=== PATIENT | female | born 1980 | race Two or more races ===

== ENCOUNTER 2020-10-16 06:05 | Inpatient (IN) | payer MEDICAID ==
[2020-10-13 10:18] LABS: APPEARANCE,URINE CLOUDY; BILIRUBIN, URINE NEGATIVE (NEGATIVE); GLUCOSE, URINE (UA) NEGATIVE (NEGATIVE); KETONES,URINE NEGATIVE (NEGATIVE); LEUKOCYTE ESTERASE ,URINE 2+ (NEGATIVE); NITRITE,URINE POSITIVE (NEGATIVE); PH,URINE 7 (4.5-8.0); PROTEIN,URINE 1+ (NEGATIVE); UROBILINOGEN,URINE NORMAL MG/DL (0.0-1.0)
[2020-10-13 10:22] LABS: COLOR,URINE YELLOW
[2020-10-13 10:24] LABS: BASOPHILS % (AUTO) 0.4 % (0.0-2.0); EOSINOPHILS % (AUTO) 0.3 % (0.0-3.0); HEMATOCRIT 48.2 % (37.0-47.0); HEMOGLOBIN 15.8 G/DL (12.0-16.0); MEAN CORPUSCULAR VOLUME 92 FL (80-99); MONOCYTES % (AUTO) 6.7 % (1.0-10.0); NEUTROPHILS % (AUTO) 74.7 % (45.0-75.0); PLATELET COUNT 298 K/UL (150-450); RED BLOOD COUNT 5.25 M/UL (4.20-5.40); RED CELL DISTRIBUTION WIDTH 12.8 % (11.6-14.8); WHITE BLOOD COUNT 5.4 K/UL (4.8-10.8)
[2020-10-13 10:25] LABS: ANION GAP 8 mmol/L (5-15); BLOOD UREA NITROGEN 10 mg/dL (7-18); CALCIUM 9.7 MG/DL (8.5-10.1); CARBON DIOXIDE 28 MMOL/L (21-32); CHLORIDE 103 MMOL/L (98-107); CREATININE 0.8 MG/DL (0.55-1.30); POTASSIUM 3.9 MMOL/L (3.5-5.1); SODIUM 139 MMOL/L (136-145)
[2020-10-16] VITALS (15 sets, daily range): BP systolic 112–145; BP diastolic 74–89
[~2020-10-16] VITALS: Ht 165.1 cm; Wt 96.6 kg
--- NOTE | 2020-10-16 05:10 | Cardiology Report ---
APPROVED REPORT EKG Measurement Heart [id number] <Conclusion> Normal sinus rhythm Normal ECG
[~2020-10-16 06:05] MED LIST: MULTIVITAMINS1 EAC2 ORAL; VITAMIN C500 M1 ORAL; vitamin D PO
[2020-10-16 06:54] LABS: APPEARANCE,URINE SLIGHTLY CLOUDY; BILIRUBIN, URINE NEGATIVE (NEGATIVE); GLUCOSE, URINE (UA) NEGATIVE (NEGATIVE); KETONES,URINE NEGATIVE (NEGATIVE); LEUKOCYTE ESTERASE ,URINE 1+ (NEGATIVE); NITRITE,URINE NEGATIVE (NEGATIVE); PH,URINE 9 (4.5-8.0); PROTEIN,URINE 2+ (NEGATIVE); UROBILINOGEN,URINE NORMAL MG/DL (0.0-1.0)
[2020-10-16 07:00] LABS: COLOR,URINE YELLOW
[2020-10-16] MEDS ORDERED: Bacitracin 50000 Units Vial ONE (07:15)
[2020-10-16] MEDS ORDERED: NeoSporin Gu Irrig 1ml Amp IRRIG ONE (07:15)
[2020-10-16] MEDS ORDERED: NS Irrig 1000ml IRRIG ONE ×2 (07:18→08:20)
[2020-10-16] MEDS ORDERED: Rocuronium Bromide 50mg/5ml Inj IV ONE (07:30)
[2020-10-16] MEDS ORDERED: Succinylcholine 20mg/ml 10ml vial ONE (07:30)
[2020-10-16] MEDS ORDERED: Midazolam 2mg/2ml Inj ONE (07:36)
[2020-10-16] MEDS ORDERED: fentaNYL 100 mcg/2 mL IV ONE (07:36)
[2020-10-16] MEDS ORDERED: Lidocaine 1% MPF 10mg/ml 5ml ONE (07:39)
--- NOTE | 2020-10-16 07:53 | Pre-Procedure Note/Attestation ---
Pre-Procedure Note/Attestation Complete Prior to Procedure Planned Procedure: left Procedure Narrative: left breast partial mastectomy and left axillary lymph node biopsy Indications for Procedure Pre-Operative Diagnosis: invasive ductal carcinoma left breast Attestation I attest that I discussed the nature of the procedure; its benefits; risks and complications; and alternatives (and the risks and benefits of such alternatives), prior to the procedure, with the patient (or the patient's legal roofing sales representative). I attest that, if there was a reasonable possibility of needing a blood transfusion, the patient (or the patient's legal roofing sales representative) was given the [facility] standardized written summary, pursuant to the Silas Saeid Blood Safety Act ([place] Health and Safety Code # 1645, as amended). I attest that I re-evaluated the patient just prior to the surgery and that there has been no change in the patient's H&P, except as documented below: none Tone Hair MD Oct 16, 2020 07:53
--- NOTE | 2020-10-16 07:57 | Anethesia Preoperative Eval ---
Anesthesia Pre-op PMH/ROS General Date of Evaluation: Oct 16, 2020 Time of Evaluation: 07:54 Anesthesiologist: Remy ASA Score: ASA 2 Mallampati Score Class I : Soft palate, uvula, fauces, pillars visible Class II: Soft palate, uvula, fauces visible Class III: Soft palate, base of uvula visible Class IV: Only hard plate visible Mallampati Classification: Class II Surgeon: Laxmi Diagnosis: L breast CA Surgical Procedure: Mastectomy Anesthesia History: none Family History: no anesthesia problems Allergies: Coded Allergies: No Known Allergies (Unverified , 10/16/20) Medications: see eMAR Patient NPO?: Yes Past Medical History Cardiovascular: Denies: HTN, CAD, MT, valve dz, arrhythmia, other Pulmonary: Denies: asthma, COPD, MARS, other Gastrointestinal/Genitourinary: Reports: GERD; Denies: CRI, ESRD, other Neurologic/Psychiatric: Reports: depression/anxiety; Denies: dementia, CVA, TIA, other Endocrine: Denies: DM, hypothyroidism, steroids, other HEENT: Denies: cataract (L), cataract (R), glaucoma, [place] (L), [place] (R), other Hematology/Immune: Denies: anemia, DVT, bleeding disorder, other Musculoskeletal/Integumentary: Denies: OA, RA, DJD, DDD, edema, other Other: obesity PMH Narrative: as above PSxH Narrative: See H&P Anesthesia Pre-op Phys. Exam Physician Exam Last Vital Signs Date Time Temp Pulse Resp B/P (MAP) Pulse Ox O2 Delivery O2 Flow Rate FiO2 10/16/20 06:48 Room Air 10/16/20 06:47 97.5 71 18 131/89 98 Constitutional: NAD Neurologic: CN 2-12 intact Cardiovascular: RRR, no M/R/G Respiratory: CTA Gastrointestinal: other - obesity Airway Exam Mallampati Score: Class II MO: full Neck: short ROM: limited Teeth: intact Dentures: no upper, no lower Anesthesia Pre-op A/P Labs see chart Urine Test Test 10/16/20 06:15 Urine HCG, Qualitative Negative (NEGATIVE) Studies Pre-op Studies: EKG - NSR Risk Assessment & Plan Assessment: ASA 2 Plan: GA with ETt Status Change Before Surgery: No Pre-Antibiotics Drug: Ancef 2gr. Given Within 1 Hr of Incision: Yes Time Given: 08:15 Malick Alberto MD Oct 16, 2020 07:57
[2020-10-16] MEDS ORDERED: Sterile Water Irrig 1000ml IRRIG ONE (08:00)
[2020-10-16] MEDS ORDERED: LR 1000ml ONE (08:00)
[2020-10-16] MEDS ORDERED: Neostigmine 1mg/ml 10ml Inj ONE (08:00)
[2020-10-16] MEDS ORDERED: Acetaminophen (Non formulary) 100 ML IV ONE (08:00)
[2020-10-16] MEDS ORDERED: NS Irrig 1000ml ONE (08:00)
[2020-10-16] MEDS ORDERED: Glycopyrrolate 0.2mg/ml 1ml Vial ONE (08:40)
[2020-10-16] MEDS ORDERED: Sodium Chloride 10ml vial INJ ONE (08:40)
[2020-10-16] MEDS ORDERED: Morphine Sulfate 10mg/ml Inj ONE (08:40)
[2020-10-16] MEDS ORDERED: Ketorolac 30mg Inj IV PRN (08:45)
[2020-10-16] MEDS ORDERED: Metoclopramide 10mg/2ml Inj IVP PRN ×2 (08:45→10:00)
[2020-10-16] MEDS ORDERED: DiphenhydrAMINE 50mg/ml Inj IVP PRN (08:45)
[2020-10-16] MEDS ORDERED: Midazolam 2mg/2ml Inj IVP PRN (08:45)
[2020-10-16] MEDS ORDERED: Meperidine 25mg/1ml Inj (FOR RIGORS ONLY) IV PRN (08:45)
[2020-10-16] MEDS ORDERED: LR 1000ml 1,000 ML IVLG SCH (08:45)
[2020-10-16] MEDS ORDERED: HYDROcodone/Acetamin 5/325 tab ORAL PRN (10:00)
--- NOTE | 2020-10-16 10:01 | Brief Operative Note ---
Immediate Post Operative Note Operative Note Pre-op Diagnosis: invasive ductal carcinoma left breast Procedure: left breast partial mastectomy and left axillary lymph node biopsy Post-op Diagnosis: same Post-op Diagnosis: same as pre-op Findings: consistent w/pre-op dx studies Surgeon: sue Anesthesiologist: erica Anesthesia: general Specimen: yes - left breast tissue, left axillary lymph nodes Complications: none Fluids: see anesthesia record Estimated Blood Loss: minimal Drains: KINGS Implant(s) used?: No Tone Hair MD Oct 16, 2020 10:01
--- NOTE | 2020-10-16 10:03 | Immediate Post-Op Evaluation ---
Immediate Post-Op Evalulation Immediate Post-Op Evalulation Procedure: L breast partial mastectomy with axillary l/n dissection Date of Evaluation: Oct 16, 2020 Time of Evaluation: 10:02 IV Fluids: 800 Blood Products: none Estimated Blood Loss: <50 Urinary Output: none Blood Pressure Systolic: 134 Blood Pressure Diastolic: 76 Pulse Rate: 82 Respiratory Rate: 20 O2 Sat by Pulse Oximetry: 99 Temperature (Fahrenheit): 97.6 Pain Score (1-10): 1 Nausea: No Vomiting: No Complications none Patient Status: reacts, patent, extubated, none Hydration Status: adequate Malick Alberto MD Oct 16, 2020 10:03
--- NOTE | 2020-10-16 11:00 | NUR ---
NURSE NOTES: Patient received from PACU via bed to 406, on RA, in stable condition. Patient AOx4, calm. Oriented patient to room, medical equipment and call light. Left breast surgical site pain 7/10, will medicate as ordered. IV infusing to right hand, site asymptomatic. Surgical site, CDI, surgical bra on. KINGS in place, with sanguineous output noted in tubing. Left arm warm, wiggles, pulse palpable, no NT. Bilateral SCDs on. Encouraged ankle rotation. Will provide clear liquids, while waiting for regular diet lunch. Belongings received, reviewed with patient. Patient currently on menstrual cycle, will provide isreal-pads. Bed in lowest position, call light in reach, will continue to monitor.
[2020-10-16] MEDS: HYDROmorphone 1mg/ml Carpuject SUBQ PRN ×2 (11:56→18:10)
--- NOTE | 2020-10-16 12:12 | 48 Hour Post Anesthesia Eval ---
Post Anesthesia Evaluation Procedure: L breast partial mastectomy with axillary l/n dissection Date of Evaluation: Oct 16, 2020 Time of Evaluation: 12:11 Blood Pressure Systolic: 112 0: 64 Pulse Rate: 78 Respiratory Rate: 18 Temperature (Fahrenheit): 97.8 O2 Sat by Pulse Oximetry: 99 Airway: patent Nausea: No Vomiting: No Pain Intensity: 2 Hydration Status: adequate Cardiopulmonary Status: stable Mental Status/LOC: patient returned to baseline Follow-up Care/Observations: n/a Post-Anesthesia Complications: none Follow-up care needed: N/A Malick Alberto MD Oct 16, 2020 12:12
[2020-10-16] MEDS: D5 1/2NS w/KCl 20mEq 1,000 ML IV SCH ×2 (12:27→23:39)
[2020-10-16] MEDS: ceFAZolin sod 1 GM in D5W 55 ML IV SCH ×2 (16:30→23:36)
--- NOTE | 2020-10-16 16:52 | NUR ---
NURSE NOTES: Provided IS, demonstrated proper use and indication, patient returned demonstration, inspires 500 ml, will need further reinforcement.
--- NOTE | 2020-10-16 18:00 | NUR ---
NURSE NOTES: Instructed and demonstrated patient on KINGS care, proper handwashing technique, infection control, glove use, opening/emptying/compressing/closing KINGS, reading and recording measurement, verbalized understanding, will endorse to next to continue educating patient.
--- NOTE | 2020-10-16 19:05 | NUR ---
NURSE HAND-OFF: Important Events on Shift:Post op at 1100, KINGS (L)x1, Emesis x1, Medicated with Dilaudid 1 mg SQx2, Zofran x1 Patient Status: stable Diet: Regular Pending Orders: none Pending Results/Labs:none Pending MD notification:none Latest Vital Signs: Temperature 97.8 , Pulse 78 , B/P 112 /64 , Respiratory Rate 18 , O2 SAT 99 , Room Air, O2 Flow Rate 6 . Vital Sign Comment: none Latest Mtz Fall Score: 60 Fall Risk: High Risk Safety Measures: Call light Within Reach, Bed Alarm , Side Rails Side Rails x2, Bed position Low and Locked. Fall Precautions: Yellow Socks Yellow Gown Door Sign Patient Fall Education Report given to Mamie MCNALLY.
--- NOTE | 2020-10-16 20:00 | NUR ---
NURSE NOTES: RECEIVED PATIENT LYING IN BED, AWAKE, ALERT/ORIENTED X4, TALKATIVE/PLEASANT, S/P LEFT BREAST PARTIAL MASTECTOMY AND LEFT AXILLARY LYMPH NOTED BIOPSY, LEFT BREAST PAIN 2/10, DULL, DRESSING DRY AND INTACT, SURGICAL BRA NOTED. IS SPIROMETER AT BEDSIDE, INSPIRES 2500ML. IV INTACT TO RIGHT HAND/GAUGE 20, NO REDNESS/SWELLING NOTED TO SITE. ENCOURAGED FOOT / ANKLE RANGE OF MOTION, TOLERATING WELL. DENIES GI DISCOMFORT, NO N/V/D, BATHROOM PRIVILEGES WITH ASSIST SECONDARY TO FALL PRECAUTIONS. SIDE RAILS UP X2 FOR MOBILITY, BED IN LOWEST POSITION FOR SAFETY, ENCOURAGED PATIENT TO UTILIZE CALL LIGHT FOR ASSISTANCE, VERBALIZED UNDERSTANDING. CONTINUE WITH CURRENT PLAN OF CARE. NAD.
[2020-10-16] MEDS ORDERED: Tubing IV Secondary IV ONE (21:22)
[2020-10-17] VITALS (7 sets, daily range): BP systolic 127–142; BP diastolic 84–96
--- NOTE | 2020-10-17 07:35 | NUR ---
NURSE NOTES: Report received from Mamie MCNALLY, rounds made. Patient AOx4, calm. Respirations even/unlabored on RA. Left breast/axillary surgical dressing CDI, KINGS with serosanguineous output noted in bulb (will continue to educate on KINGS care). Left arm warm,moves arm/fingers,pulses palpable. Surgical site pain 03/27, will medicate with Dilaudid as ordered. IVF infusing to right hand, site asymptomatic,patient complains of burning, flushed, still has discomfort, clamped off, encouraged to continue to push PO fluid intake. Appetite good,no NV. Bilateral SCDs on. Call light in reach, bed in lowest position, will continue to monitor. Addendum: 10/17/20 at 0802 by Zenaida Ramírez RN Encouraged PO pain medication, patient states, "Next time I will take [place] for pain"
--- NOTE | 2020-10-17 07:36 | NUR ---
NURSE HAND-OFF: Important Events on Shift:[KINGS DRAIN TOTAL OUTPUT 25ML, SANGUINOUS, CONTINUE TO EDUCATE PATIENT ON KINGS DRAIN CARE, INCENTIVE SPIROMETER 2500ML - FOOT AND ANKLE ROM, TOLERATING WELL, AMBULATING TO BATHROOM, VOIDING WELL, NO BOWEL MOVEMENT] Patient Status: [STABLE] Diet: [REGULAR, NO MEAT OR POULTRY,PESCATERIAN, EATS SEAFOOD] Pending Orders: [N/A] Pending Results/Labs:[N/A] Pending MD notification:[] Latest Vital Signs: Temperature 97.5 , Pulse 60 , B/P 138 /84 , Respiratory Rate 17 , O2 SAT 98 , Room Air, O2 Flow Rate 6 . Vital Sign Comment: [STABLE, AFEBRILE] Latest Mtz Fall Score: 60 Fall Risk: High Risk Safety Measures: Call light Within Reach, Bed Alarm Zone 1, Side Rails Side Rails x2, Bed position Low and Locked. Fall Precautions: Yellow Socks Door Sign Patient Fall Education Report given to [DALI BLACKWOOD].
[2020-10-17] MEDS: HYDROmorphone 1mg/ml Carpuject SUBQ PRN (08:01)
--- NOTE | 2020-10-17 08:28 | General Progress Note ---
Progress Note Progress Note No H&P in EMR chart. Pre-op orders indicate H&P dictated Tone Hair MD Oct 17, 2020 08:28
--- NOTE | 2020-10-17 08:44 | General Progress Note ---
Progress Note Progress Note AVSS Had emesis last evening and required Dilaudid SQ several doses. Feeling better this AM left breast and axilla incisions clean and dry with intact steristrips. Mild soft tissue swelling. Nipple well perfused KINGS overnight 25cc Imp: Improved after emesis Pain control Plan: Encouraged to use [place] Teach patient care of KINGS drain Continue in-patient care Tone Hair MD Oct 17, 2020 08:44
--- NOTE | 2020-10-17 13:50 | NUR ---
NURSE NOTES: Provided hands on KINGS care teaching. Patient demonstrated proper KINGS care, with RN verbal instructions and stand by assistance. Discharge supplies (4x4 gauze, paper tape, specimen cup for measuring KINGS output, gloves) provided and reviewed with patient.
--- NOTE | 2020-10-17 15:56 | NUR ---
NURSE NOTES: Patient up ambulating in room, CAMERON, kelby at bedside. Reinforced that she can move her left arm and use her left hand, but no overhead reaching, verbalized understanding.
--- NOTE | 2020-10-17 16:55 | NUR ---
NURSE NOTES: Patient family delivered patient's purse and bag with other belongings, at 1500, RN attempted to record new items on inventory record, patient refused and said she will have her purse/belongings picked up. Patient's mother, Katie, arrived at this time to pecan picker her purse and other belongings, RN handed items to patient's mother as instructed by patient, confirmed patient's mom name.
--- NOTE | 2020-10-17 19:09 | NUR ---
NURSE HAND-OFF: Important Events on Shift:KINGS care teaching done x2, Discharge supply bag ready in room, Medicated with Dilaudid 1mg SQx1, ambulated in room/BRP, Plans for discharge 10/18 AM, KINGS output 40 ml for day shift Patient Status: stable Diet: regular Pending Orders: Discharge 10/18 AM Pending Results/Labs:none Pending MD notification:none Latest Vital Signs: Temperature 97.2 , Pulse 79 , B/P 142 /95 , Respiratory Rate 20 , O2 SAT 96 , Room Air, O2 Flow Rate 6 . Vital Sign Comment: monitor BP Latest Mtz Fall Score: 60 Fall Risk: High Risk Safety Measures: Call light Within Reach, Bed Alarm Zone 1, Side Rails Side Rails x2, Bed position Low and Locked. Fall Precautions: Yellow Socks Door Sign Patient Fall Education Report given to Lynsey MCNALLY.
--- NOTE | 2020-10-17 19:15 | NUR ---
NURSE NOTES: Patient in bed, sleeping at this time. Respirations even and unlabored on room air. Surgical dressing noted on the L breast/axillary; clean, dry and intact. KINGS drain in tact. IV intact and patent. Bed locked and in lowest position. Call light in reach. Will continue plan of care.
[2020-10-18 04:00] VITALS: BP 143/87
--- NOTE | 2020-10-18 06:48 | NUR ---
NURSE HAND-OFF: Important Events on Shift: No reports of pain this shift; KINGS drain output 10cc Patient Status: Stable Diet: Reg Pending Orders: N/A Pending Results/Labs: No AM labs Pending MD notification: N/A Latest Vital Signs: Temperature 97.5 , Pulse 71 , B/P 143 /87 , Respiratory Rate 16 , O2 SAT 98 , Room Air, O2 Flow Rate 6 . Vital Sign Comment: N/A Latest Mtz Fall Score: 60 Fall Risk: High Risk Safety Measures: Call light Within Reach, Bed Alarm Zone 1, Side Rails Side Rails x2, Bed position Low and Locked. Fall Precautions: Yellow Socks Door Sign Patient Fall Education
--- NOTE | 2020-10-18 07:25 | NUR ---
NURSE NOTES: RECEIVED PATIENT LYING IN BED, AWAKE, ALERT/ORIENTED X4, PLEASANT PERSONALITY, SURGICAL DRESSING DRY AND INTACT, SURGICAL BRA WORN NOTED. IS UTILIZES DIRECTED W/A 10X AT BEDSIDE. PIV INTACT TO RIGHT HAND/GAUGE 20, NO REDNESS/SWELLING NOTED TO SITE. [place] REFLEX PRESENT. DENIES GI DISCOMFORT, NO N/V/D, BRP WITH FALL PRECAUTIONS. SIDERAILS UP X2 FOR MOBILITY, BED IN LOWEST POSITION FOR SAFETY, ENCOURAGED PATIENT TO UTILIZE CALL LIGHT FOR ASSISTANCE, VERBALIZED UNDERSTANDING. CONTINUE WITH CURRENT PLAN OF CARE.
[2020-10-18 07:56] VITALS: BP 140/93
--- NOTE | 2020-10-18 09:46 | General Progress Note ---
Progress Note Progress Note AVSS Pain better controlled now with [place] left breast and axilla healing nicely. Surgical brassiere to be maintained 10/04 Imp: improved Plan: discharge Instructions/limitations/supplies discussed/provided Rx [place] #30 f/u 10/22/20 Tone Hair MD Oct 18, 2020 09:46
[2020-10-18] MEDS ORDERED: HYDROCODON-ACE1 EA15 ORAL (09:59)
--- NOTE | 2020-10-18 10:53 | NUR ---
NURSE NOTES: D/C HOME WITH RX AND INSTRUCTIONS GIVE Addendum: 10/18/20 at 1101 by MICHAEL JACOBS LVN DISCHARGE INSTRUCTIONS GIVEN. REMOVED IV ACCESS. PERSONAL BELONGINGS REVIEWED AND NOTED. DR MANN CHANGED DRY DRS. CLEAN AND INTACT. VERIFIED HOME ADDRESS. EMPTIED KINGS DRAIN AND ABLE TO PERFORM RETURN DEMONSTRATIONS GIVEN. VERBALIZED UNDERSTANDING. IN STABLE CONDITION. PROVIDED ADEQUATE SUPPLIES FOR DRSG CHANGE.
--- NOTE | 2020-10-18 11:59 | Pre-op HX & Phy Repo 2 SIG ---
DATE OF ADMISSION: 10/16/2020 SCHEDULED FOR SURGERY: October 16, 2020. HISTORY OF PRESENT ILLNESS: The patient is a 39-year-old female in overall good health who developed a left periareolar nodule at 6 o'clock near the periphery of the areola. She has a history of retropectoral saline implants. The left periareolar nodule measured 7 x 5 x 7 mm was a palpable mass. Core biopsy revealed invasive ductal carcinoma, estrogen and progesterone receptor positive, HER2 negative. Ki67 is 2%. The patient was seen by Oncology in consultation. She underwent genetic testing. 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 She is scheduled to undergo left breast partial mastectomy and left axillary lymph node biopsy. PAST MEDICAL HISTORY: MEDICATIONS: None. ALLERGIES: None. OPERATIONS: In 2009, she underwent bilateral saline implants retropectoral as well as ptosis procedure. She is 1, para 0. She has regular menstrual periods. PHYSICAL EXAMINATION: GENERAL: She is 5 feet and 5 inches, 210 pounds. Vital signs stable. HEENT: Within normal limits. LUNGS: Clear. HEART: Regular rhythm. BREASTS: Right breast unremarkable. Left breast has a palpable less than 1 cm nodule at 5 to 6 o'clock at the periphery of the areola. There is no axillary or supraclavicular lymphadenopathy. ABDOMEN: Soft. PELVIC: Per primary care. RECTAL: Per primary care. EXTREMITIES: Without edema. NEUROLOGIC: Physiologic. IMPRESSION: 1. Invasive ductal carcinoma, left breast. 2. Retropectoral saline implants and status post ptosis procedure. 3. 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 PLAN: The patient and I have had a full discussion regarding her condition, the nature of the surgery, indications, alternatives, options, and risks including bleeding, infection, distortion of breast or nipple, need to resect much of the areola and possibly the nipple based on frozen section evaluation during surgery, the need for additional treatments including surgery, radiation, chemotherapy, hormonal therapy based on final pathology, neuritis or neuralgia, bleeding or infection, etc. All questions have been answered. The patient understands and agrees to proceed. Tone Hair M.D. DR: Jermaine JOB#: [id number] CC:
--- NOTE | 2020-10-18 22:59 | Operative Note - Dictated ---
DATE OF OPERATION: 10/16/2020 SURGEON: Tone Hair MD VOCATIONAL AIDE: None. ANESTHESIOLOGIST: Malick Alberto MD TYPE OF ANESTHESIA: General endotracheal. PREOPERATIVE DIAGNOSIS: Invasive ductal carcinoma, left breast. POSTOPERATIVE DIAGNOSIS: Invasive ductal carcinoma, left breast. OPERATION PERFORMED: Left breast partial mastectomy and left axillary lymph node biopsy. DESCRIPTION OF PROCEDURE: The patient was taken to the operating room and under general anesthesia with sequential compression device stockings in place and having received intravenous antibiotics, she was prepped and draped in usual fashion. The lesion was located at approximately 5 o'clock on to the areolar border between the nipple and the areola. The patient has a past history of bilateral retropectoral saline implants and a ptosis procedure. A curvilinear circumareolar incision was made making an ellipse to excise the skin overlying this palpable small malignant nodule. A wide resection partial mastectomy was performed achieving hemostasis with cautery and using sutures to arti superior and medial and the skin marked anterior. Pathology inspected the specimen and felt that additional anterior superior margin should be excised, which was done and given as a separate specimen. Hemostasis was carefully achieved with cautery. The incision was closed with interrupted 3-0 Vicryl deep dermal subcutaneous sutures followed by continuous 5-0 Monocryl subcuticular suture. It should be noted that the capsule of the breast implant was not retropectoral, but just behind the breast. A vertical left axillary incision was made achieving hemostasis with cautery and incising the clavipectoral fascia using the Thunderbeat vessel sealing electrosurgical device. A lower level axillary dissection was performed and pathology confirmed the presence of lymph nodes. Hemostasis was carefully achieved. The field was irrigated with sterile water, which had been done with the breast as well. Through a separate stab incision inferiorly, a large flat Faraz drain was placed into the axilla and sutured to the skin with 2-0 nylon skin suture. After ascertaining the hemostasis was secured, the clavipectoral fascia was closed with interrupted 2-0 Vicryl. Subcutaneous tissues closed with interrupted 3-0 Vicryl and the skin closed with continuous 4-0 Monocryl subcuticular suture. Mastisol and half-inch Steri-Strips were applied to both incisions followed by dry sterile dressings. Final sponge and needle counts were correct. The patient tolerated the procedure well and left the operating room in good condition. Tone Hair M.D. DR: HELLEN JOB#: [id number] CC:
--- NOTE | 2020-10-22 13:38 | Discharge Summary ---
Discharge Summary Hospital Course Date of Admission Oct 16, 2020 at 10:42 Date of Discharge Oct 18, 2020 at 10:53 Admitting Diagnosis Invasive ductal carcinoma, left breast. Reason for Hospitalization: Elective surgery HPI Deanna Person is a 39 year old female who was admitted for invasive ductal carcinoma left breast. Patient was admitted for elective surgery. Procedures s/p 10/16/[address] Hair Left breast partial mastectomy and left axillary lymph node biopsy. Hospital Course status post surgery course of recovery uneventful initially IV fluids s/p perioperative antibiotic pain management was addressed , pain was controlled remained hemodynamically stable Left breast and axilla incisions remained clean and dry with intact Steri- Strips KINGS output was closely monitored patient was instructed on care for KINGS surgical brassiere to be maintained 24/7 initially emesis antiemetic provided as needed emesis subsided patient was able to tolerate diet , IV fluids discontinued instruction/limitations/supplies discussed/provided prescription for [place] 5/325 #30 provided patient to follow-up in the office 10/22/2020 FINAL DIAGNOSES Invasive ductal carcinoma, left breast. s/p Left breast partial mastectomy and left axillary lymph node biopsy. Discharge Medications Continued Medications: Ascorbic Acid* (Vitamin C*) 500 Mg Tablet 500 MG ORAL DAILY for supplement , #30 TAB 0 Refills Hydrocodone/Acetaminophen 5-325* (Hydrocodone/Acetaminophen 5-325*) 1 Each Tablet 1 TAB ORAL Q4H PRN for For Pain, #30 TAB 0 Refills Multivitamins* (Multivitamins*) 1 Each Tablet 1 TAB ORAL DAILY for SUPPLEMENT, TAB 0 Refills Discontinued Medications: [vitamin D] () 1000 UNITS PO DAILY Discharge Discharge Vital Signs Last Vital Signs Date Time Temp Pulse Resp B/P (MAP) Pulse Ox O2 Delivery O2 Flow Rate FiO2 10/18/20 09:00 Room Air 10/18/20 08:22 98.8 10/18/20 07:56 86 20 140/93 (109) 98 10/16/20 10:15 6 Discharge Disposition Patient was discharged home Discharge Instructions Discharge Instructions Special Instructions I have been assigned to complete a D/C Summary on this account. I was not involved in the patient management Angi Sanchez NP Oct 22, 2020 13:38
== END 2020-10-18 10:53 | disposition home or self-care (01) | DRG 363 ==
LOC: SUR 06:05 → EDSEX 08:00 → 4E 10:42
PROC: 07T60ZZ Resection of Left Axillary Lymphatic, Open Approach (ICD-10-PCS; 2020-10-16)
PROC: 0HBU0ZZ Excision of Left Breast, Open Approach (ICD-10-PCS; principal; 2020-10-16 08:00)
DX: C50.012 Malignant neoplasm of nipple and areola, left female breast (principal); Z17.0 Estrogen receptor positive status [ER+]; Z15.02 Genetic susceptibility to malignant neoplasm of ovary; Z98.82 Breast implant status
CPT/HCPCS: 36415; 80048; 81001; 81025; 85025; 85610; 85730; 87086; 87181; 93005; 94003; 94150; J2250; J2405; J2710